=== PATIENT | female | born 1955 | race Caucasian/White ===

== ENCOUNTER → 2017-03-26 | Outpatient (CLI) | payer BC ==
[~2017-03-26] MED LIST: CLON1TAB PO; GABA300C PO; HYDR-3307 PO; LEVO100T5 PO; REGADENOSON 0.4 MG/5 ML SYRINGE ONE; ROSU10TA PO; TRAZ300T2 PO
== END | disposition home or self-care (01) ==
LOC: RAD 07:45
PROVIDERS: ATTEND Internal Medicine Cardiovascular Disease
DX: I25.89 Other forms of chronic ischemic heart disease (principal); I10 Essential (primary) hypertension; I25.10 Atherosclerotic heart disease of native coronary artery without angina pectoris; Z95.0 Presence of cardiac pacemaker
CPT/HCPCS: 78452; 93017; A9502; J2785